=== PATIENT | male | born 1975 | race Caucasian/White ===

== ENCOUNTER 2019-01-30 15:15 | Inpatient (IN) | payer OTHER ==
[~2019-01-30] VITALS: Ht 182.9 cm; Wt 83.9 kg
[2019-02-07] MEDS ORDERED: Vitamin B-6 PO (14:36)
[2019-02-07] MEDS ORDERED: OXYC1TAB9 PO (14:36)
[2019-02-07] MEDS ORDERED: Neurin-Sl Tablet Sl SL (14:36)
[2019-02-07] MEDS ORDERED: DICLOFENAC SODI75 MG PO (14:37)
[2019-02-07] MEDS ORDERED: INTESTINEX680 M1 PO (14:37)
[2019-02-07] MEDS ORDERED: INTEGRA F CAPS1 EACH PO (14:37)
== END 2019-02-07 16:26 | disposition home or self-care (01) | DRG 333 ==
LOC: SURH 02-04 10:15 → O/R 02-04 11:00 → SURH 02-04 11:00
PROVIDERS: ADMIT Surgery
PROC: 07TC4ZZ Resection of Pelvis Lymphatic, Percutaneous Endoscopic Approach (ICD-10-PCS; 2019-02-04)
PROC: 0DJD8ZZ Inspection of Lower Intestinal Tract, Via Natural or Artificial Opening Endoscopic (ICD-10-PCS; 2019-02-04)
PROC: 0DTP4ZZ Resection of Rectum, Percutaneous Endoscopic Approach (ICD-10-PCS; principal; 2019-02-04 10:15)
DX: C18.7 Malignant neoplasm of sigmoid colon (principal); D62 Acute posthemorrhagic anemia; C20 Malignant neoplasm of rectum; R59.0 Localized enlarged lymph nodes; R19.4 Change in bowel habit; R19.5 Other fecal abnormalities; K57.30 Diverticulosis of large intestine without perforation or abscess without bleeding

== ENCOUNTER 2019-03-07 07:20 | Day surgery (SDC) | payer OTHER ==
[~2019-03-07 07:20] MED LIST: DICLOFENAC SODI75 MG PO; INTEGRA F CAPS1 EACH PO; INTESTINEX680 M1 PO; Neurin-Sl Tablet Sl SL; OXYC1TAB9 PO; Vitamin B-6 PO
[2019-03-07] MEDS ORDERED: ULTRACET PO (09:23)
== END 2019-03-07 11:15 | disposition home or self-care (01) ==
LOC: CIR.AMB 07:20
DX: C18.7 Malignant neoplasm of sigmoid colon (principal)
CPT/HCPCS: 36561; C1751

== ENCOUNTER 2023-07-06 07:00 | Day surgery (SDC) | payer OTHER ==
[~2023-07-06 07:00] MED LIST changes: +ULTRACET PO
[2023-07-06] MEDS ORDERED: TRAM1TAB98 PO (11:51)
== END 2023-07-06 14:00 | disposition home or self-care (01) ==
LOC: CIR.AMB 07:00
PROVIDERS: ATTEND Surgery
DX: C18.7 Malignant neoplasm of sigmoid colon (principal); R19.4 Change in bowel habit; R19.5 Other fecal abnormalities; Z20.822 Contact with and (suspected) exposure to COVID-19